=== PATIENT | female | born 1960 | race Caucasian/White ===

== ENCOUNTER 2019-07-09 14:40 | Emergency (ER) | payer BC ==
[2019-07-09 14:55] VITALS: BP 117/71; PULSE 65; RESP 17; TEMP 98.3
--- NOTE | 2019-07-09 15:12 | ED ---
Fall HPI - General Chief Complaint: Fall Stated Complaint: Fall Time Seen by Provider: 07/09/19 15:03 Source: patient, RN notes reviewed Mode of arrival: ambulatory Limitations: no limitations - History of Present Illness Initial Comments: 4-year-old female presents emergency Department with chief complaint of left wrist pain. Patient states she fell off a ladder and tried to brace herself but states her arm got caught behind her. She initially had some shoulder pain with primary show his left wrist pain. Patient is right-hand dominant no prior f ractures to left wrist. She did take some Motrin prior arrival does not require any further pain medication. There is any paresthesias no head injury no loss conscious. - Related Data Allergies Allergy/AdvReac Type Severity Reaction Status Date / Time pollen extracts Allergy Dyspnea Verified 07/09/19 14:56 Review of Systems ROS Statement: Those systems with pertinent positive or pertinent negative responses have been documented in the HPI. ROS Other: All systems not noted in ROS Statement are negative. Past Medical History Past Medical History: GERD/Reflux History of Any Multi-Drug Resistant Organisms: None Reported Past Surgical History: No Surgical Hx Reported Past Psychological History: No Psychological Hx Reported Smoking Status: Current every day smoker Past Alcohol Use History: Occasional Past Drug Use History: None Reported General Exam Limitations: no limitations General appearance: alert, in no apparent distress Head exam: Present: atraumatic, normocephalic, normal inspection Neck exam: Present: normal inspection, full ROM. Absent: tenderness Respiratory exam: Present: normal lung sounds bilaterally. Absent: respiratory distress, wheezes, rales, rhonchi, stridor Cardiovascular Exam: Present: regular rate, normal rhythm, normal heart sounds. Absent: systolic murmur, diastolic murmur, rubs, gallop, clicks Extremities exam: Present: other (Left wrist there is mild swelling, no snuffbox tenderness, there is moderate tenderness with palpation there is no proximal forearm tenderness and is no tenderness extends into the MCP region patient is full range motion left shoulder nontender.) Neurological exam: Present: alert, oriented X3, CN II-XII intact Skin exam: Present: warm, dry, intact, normal color. Absent: rash Course Vital Signs 07/09/19 14:51 Temperature 98.3 F Pulse Rate 65 Respiratory 17 Rate Blood Pressure 117/71 O2 Sat by Pulse 100 Oximetry Procedures - Orthopedic Splinting/Casting Injury #1 Side: left Upper Extremity Injury Location: short arm, wrist Upper Extremity Immobilizer: volar splint, synthetic pre-padded splint Medical Decision Making - Medical Decision Making 4-year-old female presented for fall wrist pain. X-rays obtained shows evidence for fracture. Patient was splinted and follow for orthopedics. Disposition Clinical Impression: Fall, Left wrist fracture Disposition: HOME SELF-CARE Condition: Stable Instructions (If sedation given, give patient instructions): Wrist Fracture in Adults (ED) Additional Instructions: Please return to the Emergency Department if symptoms worsen or any other concerns. Is patient prescribed a controlled substance at d/c from ED?: No Referrals: Justin Lam MD [Primary Care Provider] - 1-2 days Calin Dawson MD [STAFF PHYSICIAN] - 1-2 days Time of Disposition: 15:48
--- NOTE | 2019-07-09 15:32 | XR ---
EXAMINATION TYPE: XR wrist complete LT DATE OF EXAM: 07/09/2019 CLINICAL HISTORY: pain TECHNIQUE: Frontal, lateral and oblique images of the left wrist are obtained. COMPARISON: None. FINDINGS: Tip of the ulnar styloid process fracture noted. Vague lucency involving the distal radius may reflect additional hairline fracture. Mild soft tissue swelling noted. The joint spaces appear w ithin normal limits. IMPRESSION: Tip of the ulnar styloid process fracture noted. Vague lucency involving the distal radius may reflec t additional hairline fracture. ICD 10 closed FRACTURE, INITIAL EVALUATION
== END 2019-07-09 15:49 | disposition home or self-care (01) ==
LOC: EC 14:40
DX: S52.612A Displaced fracture of left ulna styloid process, initial encounter for closed fracture (principal); F17.200 Nicotine dependence, unspecified, uncomplicated; Z91.018 Allergy to other foods; W11.XXXA Fall on and from ladder, initial encounter; Y92.009 Unspecified place in unspecified non-institutional (private) residence as the place of occurrence of the external cause
CPT/HCPCS: 29125; 99283

== ENCOUNTER → 2024-09-16 | Outpatient (CLI) | payer MEDICARE ==
[2024-09-16 09:43] LABS: African American GFR (CKD) >90 (>60 ml/min/1.73 sqM); Blood Urea Nitrogen 14 mg/dL (7-17); Non-African American GFR(CKD) >90 (>60 ml/min/1.73 sqM)
--- NOTE | 2024-09-16 10:37 | CT ---
EXAMINATION TYPE: CT abdomen wo/w con CT DLP: 737.0 mGycm, Automated exposure control for dose reduction was used. DATE OF EXAM: 09/16/2024 10:18 AM COMPARISON: None CLINICAL INDICATION:Female, 63 years old with history of R50.9 FEVER WITH CHILLS R10.30 LOWER ABD LUI N; lower abdominal pain, suspecting diverticulitis TECHNIQUE: Standard CT of the abdomen before and after the uneventful administration of 100 cc of I sovue-370 intravenously. Oral contrast was administered. Coronal and sagittal reformats were performe d. FINDINGS: LOWER CHEST: Unremarkable ABDOMEN LIVER: Unremarkable GALLBLADDER AND BILE DUCTS: Unremarkable. PANCREAS: Unremarkable. SPLEEN: Unremarkable. ADRENAL GLANDS: Unremarkable. KIDNEYS AND URETERS: No evidence of hydronephrosis or renal calculus. The kidneys enhance symmetrical ly. Contrast is demonstrated within both collecting systems on the delayed phase. STOMACH AND BOWEL: Small hiatal hernia. Mid duodenal diverticulum. Distal colonic diverticulosis with out evidence for acute diverticulitis. Enteric contrast reaches the ileocecal junction. No focal travis l wall thickening or surrounding inflammatory changes identified of the visualized bowel. No evidence of bowel obstruction. PERITONEUM: No evidence of pneumoperitoneum or free fluid. VASCULATURE: No evidence of aortic aneurysm. MUSCULOSKELETAL: No acute osseous abnormalities. Dextrocurvature of the lumbar spine. Mild retrolisth esis of L1 on L2 and L2 on L3. Mild multilevel degenerative disc disease. LYMPH NODES: No evidence for lymphadenopathy. SOFT TISSUE/ABDOMINAL WALL: Tiny fat filled umbilical hernia. IMPRESSION: 1. No CT evidence for acute abdominal process. 2. Distal colonic diverticulosis without visualized acute diverticulitis. [facility], , 09/16/2024 10:35 AM
== END | disposition home or self-care (01) ==
LOC: RADCTMAIN 08:53
PROVIDERS: ATTEND Family Medicine
DX: K57.30 Diverticulosis of large intestine without perforation or abscess without bleeding (principal)
CPT/HCPCS: 36415; 74170; 82565; 84520